=== PATIENT | male | born 1980 | race Caucasian/White ===

== ENCOUNTER 2017-01-04 01:19 | Emergency (ER) | payer OTHER ==
[~2017-01-04] VITALS: Ht 185.4 cm; Wt 108.9 kg
[2017-01-04 01:27] VITALS: BP 133/75
== END 2017-01-04 01:56 | disposition home or self-care (01) ==
LOC: ER 01:19
DX: R51 Headache (principal); F41.9 Anxiety disorder, unspecified
CPT/HCPCS: 99282; A4606; Z7610

== ENCOUNTER 2017-01-12 11:21 | Emergency (ER) | payer OTHER ==
[~2017-01-12] VITALS: Ht 185.4 cm; Wt 108.9 kg
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
[2017-01-12 11:58] LABS: BASOPHILS # (AUTO) 0.1 /CMM (0.0-0.2); BASOPHILS % (AUTO) 0.8 % (0.0-2.0); EOSINOPHILS # (AUTO) 0.5 /CMM (0.0-0.7); EOSINOPHILS % (AUTO) 4.6 % (0.0-6.0); HEMATOCRIT 51 % (39-51); HEMOGLOBIN 16.5 g/dL (13.5-17.5); LYMPHOCYTES # (AUTO) 2.2 /CMM (0.8-4.8); LYMPHOCYTES % (AUTO) 22.6 % (20.0-44.0); MEAN CORPUSCULAR HEMOGLOBIN 28 PG (26.0-33.0); MEAN CORPUSCULAR HGB CONC 32 g/dl (31.0-36.0); MEAN CORPUSCULAR VOLUME 87 fL (80-96); MONOCYTES # (AUTO) 0.7 /CMM (0.1-1.30); MONOCYTES % (AUTO) 6.9 % (2.0-12.0); NEUTROPHILS # (AUTO) 6.3 /CMM (1.8-8.9); NEUTROPHILS % (AUTO) 65.1 % (43.0-81.0); PLATELET COUNT (AUTO) 244 /CMM (150-450); RDW COEFFICIENT OF VARIATION 12.5 (11.5-15.0); RED BLOOD CELL COUNT(AUTO) 5.86 MIL/uL (4.5-6.0); WHITE BLOOD COUNT (AUTO) 9.8 K/uL (4.3-11.0)
[2017-01-12] MEDS ORDERED: IV NS 0.9% 1,000 ML BAG IV ONE (12:00)
[2017-01-12 12:05] LABS: CREATININE 0.9 mg/dL (0.6-1.3); POTASSIUM 4.4 mmol/L (3.5-5.1)
[2017-01-12 12:10] LABS: CALCIUM, SERUM 8.9 mg/dL (8.5-10.1)
[2017-01-12] MEDS ORDERED: IV NS 0.9% 250 ML IV ONE (12:18)
[2017-01-12] MEDS ORDERED: IOHEXOL-350 100 ML VIAL IV ONE (12:18)
[2017-01-12] MEDS ORDERED: CT SWABBABLE VALVE TRANS SET 1 EA INFUS.SET MC ONE (12:18)
--- NOTE | 2017-01-12 12:26 | NUR ---
TRANSPORTED TO CT IN STABLE CONDITION
--- NOTE | 2017-01-12 14:18 | NUR ---
DR GARCIA ON THE PHONE WITH DR LEW.
--- NOTE | 2017-01-12 14:25 | NUR ---
Patient discharged to home in stable condition. Written and verbal after care instructions given. Patient verbalizes understanding of instruction. IV removed. Catheter intact and site benign. Pressure and 4x4 applied to site. No bleeding noted. AMBULATORY WITH STEADY GAIT.
[2017-01-12 14:27] VITALS: BP 139/98
== END 2017-01-12 14:28 | disposition home or self-care (01) ==
LOC: ER 11:23
DX: R51 Headache (principal); R01.1 Cardiac murmur, unspecified; F41.9 Anxiety disorder, unspecified
CPT/HCPCS: 36415; 70496-TC; 70498-TC; 80048-TC; 85025-TC; A4606; J7030; J7050; Q9967; Z7610

== ENCOUNTER 2018-03-08 16:51 | Emergency (ER) | payer SELFPAY ==
[~2018-03-08] VITALS: Ht 185.4 cm; Wt 115.7 kg
[2018-03-08 17:58] VITALS: BP 135/96
[2018-03-08] MEDS ORDERED: BACITRACIN ZINC OINT PACKET 1 EA PACKET TP ONE ×2 (19:30→19:33)
== END 2018-03-08 20:38 | disposition home or self-care (01) ==
LOC: ER 17:00
DX: L30.1 Dyshidrosis [pompholyx] (principal); F41.9 Anxiety disorder, unspecified
CPT/HCPCS: 99283; A4606; Z7610

== ENCOUNTER 2019-01-12 23:18 | Emergency (ER) | payer MEDICAID ==
[~2019-01-12] VITALS: Ht 185.4 cm; Wt 120.9 kg
[2019-01-13 00:42] VITALS: BP 140/83
[2019-01-13] MEDS ORDERED: IBUPROFEN 600 MG TABLET PO ONE ×2 (02:24→02:30)
== END 2019-01-13 03:03 | disposition home or self-care (01) ==
LOC: ER 23:18
DX: M70.21 Olecranon bursitis, right elbow (principal); F41.9 Anxiety disorder, unspecified; W18.39XA Other fall on same level, initial encounter; Y93.89 Activity, other specified; Y92.89 Other specified places as the place of occurrence of the external cause; Y99.8 Other external cause status
CPT/HCPCS: 73080-TC; 73090-TC

== ENCOUNTER → 2023-01-16 | Emergency (ER) | payer BC, OTHER ==
[~2023-01-16] VITALS: Ht 188 cm; Wt 130.2 kg
--- NOTE | 2023-01-16 17:22 | NUR ---
PATIENT CAME WITH EDEMA IN BOTH LOWER LEG AND THROMBING PAIN AT RT THIGH.ALERT AND ORIENTED.ON RMM AIR.ATTACHED TO MONITOR.AWAITING
--- NOTE | 2023-01-16 17:53 | NUR ---
LAB AT BED SIDE
--- NOTE | 2023-01-16 18:12 | NUR ---
DUPLEX SCSN AT BED SIDE
[2023-01-16 18:13] LABS: BASOPHILS % (AUTO) 0.5 % (0.0-2.0); EOSINOPHILS % (AUTO) 4.1 % (0.0-6.0); HEMATOCRIT 46 % (39-51); HEMOGLOBIN 15.5 g/dL (13.5-17.5); LYMPHOCYTES # (AUTO) 2.9 K/uL (0.8-4.8); LYMPHOCYTES % (AUTO) 30.4 % (20.0-44.0); MEAN CORPUSCULAR HGB CONC 34 g/dl (31.0-36.0); MEAN CORPUSCULAR VOLUME 86 fL (80-96); MONOCYTES # (AUTO) 0.7 K/uL (0.1-1.30); MONOCYTES % (AUTO) 7.4 % (2.0-12.0); NEUTROPHILS # (AUTO) 5.5 K/uL (1.8-8.9); NEUTROPHILS % (AUTO) 57.6 % (43.0-81.0); PLATELET COUNT (AUTO) 240 K/uL (150-450); RED BLOOD CELL COUNT(AUTO) 5.34 MIL/uL (4.5-6.0); WHITE BLOOD COUNT (AUTO) 9.6 K/uL (4.3-11.0)
[2023-01-16 18:26] LABS: CALCIUM, SERUM 9.4 mg/dL (8.5-10.1); CARBON DIOXIDE 25 mmol/L (21-32); CHLORIDE 103 mmol/L (98-107); CREATININE 0.8 mg/dL (0.6-1.3); GLUCOSE 91 mg/dL (74-106); POTASSIUM 3.7 mmol/L (3.5-5.1); SODIUM SERUM 141 mmol/L (136-145); UREA NITROGEN, BLOOD 17 mg/dL (7-18)
[2023-01-16 18:39] LABS: ALANINE AMINOTRANSFERASE 48 U/L (12-78); ALBUMIN 3.9 g/dL (3.4-5.0); ALKALINE PHOSPHATASE 123 U/L (46-116); ASPARTATE AMINOTRANSFERASE 23 U/L (15-37); BILIRUBIN,DIRECT 0.1 mg/dL (0.0-0.2); BILIRUBIN,TOTAL 0.7 mg/dL (0.2-1.0); TOTAL PROTEIN, SERUM 7.9 g/dL (6.4-8.2)
--- NOTE | 2023-01-16 18:55 | NUR ---
DR ZAMORANO AT BED SIDE
--- NOTE | 2023-01-16 19:08 | NUR ---
Patient discharged to home in stable condition. Written and verbal after care instructions given. Patient verbalizes understanding of instruction.
[2023-01-16 19:09] VITALS: BP 110/84; TEMP 98.3; O2SAT 98
== END | disposition home or self-care (01) ==
LOC: ER 17:06
DX: R60.0 Localized edema (principal); F41.9 Anxiety disorder, unspecified
CPT/HCPCS: 36415; 80048-TC; 80076-TC; 83880; 84484-TC; 85025-TC; 85378-TC; 85730-TC; 93971-TC